=== PATIENT | female | born 1985 | race Caucasian/White ===

== ENCOUNTER 2019-11-27 08:18 | Emergency (ER) | payer OTHER ==
[~2019-11-27] VITALS: Ht 165.1 cm; Wt 65.9 kg
[~2019-11-27 08:18] MED LIST: LITH300T3 PO; NORE1TAB PO; [UNRECOGNIZED DRUG - CODE] PO
[2019-11-27 09:49] VITALS: BP 132/68
== END 2019-11-27 10:39 | disposition home or self-care (01) ==
LOC: EMS 08:24 → EEVIPCON 08:24 → EMS 10:39
DX: Z20.828 Contact with and (suspected) exposure to other viral communicable diseases (principal); Z79.899 Other long term (current) drug therapy
CPT/HCPCS: 87426; 99283; U0003

== ENCOUNTER 2020-03-20 10:02 | Emergency (ER) | payer OTHER ==
[~2020-03-20] VITALS: Ht 165.1 cm; Wt 65.9 kg
[2020-03-20 10:05] VITALS: BP 133/75
== END 2020-03-20 10:45 | disposition home or self-care (01) ==
LOC: EMS 10:10
DX: J02.9 Acute pharyngitis, unspecified (principal); Z20.828 Contact with and (suspected) exposure to other viral communicable diseases
CPT/HCPCS: 99283; U0003